=== PATIENT | female | born 1995 | race Caucasian/White ===

== ENCOUNTER 2017-07-28 19:49 | Emergency (ER) | payer OTHER ==
[~2017-07-28] VITALS: Ht 165.1 cm; Wt 59.0 kg
[2017-07-28] MEDS ORDERED: KETOROLAC 30 MG/ML VIAL IVP STA (23:36)
[2017-07-29 00:19] LABS: BASOPHILS % (AUTO) 1 % (0-10); EOSINOPHILS # (AUTO) 0.2 10^3/uL (0.0-0.3); EOSINOPHILS % (AUTO) 2 % (0-10); HEMATOCRIT 39 % (35-52); HEMOGLOBIN 13.3 G/DL (11.5-16.0); LYMPHOCYTES # (AUTO) 3.8 X 10^3 (1.0-4.0); LYMPHOCYTES % (AUTO) 48 % (12-44); MEAN CORPUSCULAR HEMOGLOBIN 32 PG (25-34); MEAN CORPUSCULAR HGB CONC 34 G/DL (32-36); MEAN CORPUSCULAR VOLUME 93 FL (80-99); MEAN PLATELET VOLUME 10.5 FL (7.4-10.4); MONOCYTES # (AUTO) 0.6 X 10^3 (0.0-1.0); MONOCYTES % (AUTO) 8 % (0-12); NEUTROPHILS # (AUTO) 3.2 X 10^3 (1.8-7.8); NEUTROPHILS % (AUTO) 41 % (42-75); PLATELET COUNT 258 10^3/uL (130-400); RED BLOOD COUNT 4.19 10^6/uL (4.35-5.85); WHITE BLOOD COUNT 7.8 10^3/uL (4.3-11.0)
[2017-07-29 00:30] LABS: BILIRUBIN,URINE NEGATIVE (NEGATIVE); CLARITY,URINE SLIGHTLY CLOUDY; GLUCOSE, URINE (UA) NEGATIVE (NEGATIVE); KETONES,URINE NEGATIVE (NEGATIVE); LEUKOCYTE ESTERASE ,URINE 1+ (NEGATIVE); NITRITE,URINE NEGATIVE (NEGATIVE); PH,URINE 6 (5-9); PROTEIN,URINE 1+ (NEGATIVE); UROBILINOGEN,URINE NORMAL (NORMAL)
[2017-07-29 00:43] LABS: COLOR,URINE YELLOW
[2017-07-29 00:44] LABS: ALANINE AMINOTRANSFERASE 31 U/L (0-55); ALBUMIN 3.9 GM/DL (3.2-4.5); ALKALINE PHOSPHATASE 50 U/L (40-136); BILIRUBIN,TOTAL 0.3 MG/DL (0.1-1.0); BUN/CREATININE RATIO 15; CALCIUM 9.1 MG/DL (8.5-10.1); CARBON DIOXIDE 23 MMOL/L (21-32); CHLORIDE 105 MMOL/L (98-107); CREATININE SERUM 0.74 MG/DL (0.60-1.30); GFR ESTIMATED > 60; GLUCOSE 94 MG/DL (70-105); POTASSIUM 3.2 MMOL/L (3.6-5.0); SODIUM 139 MMOL/L (135-145); TOTAL PROTEIN 6.7 GM/DL (6.4-8.2)
[2017-07-29 00:45] LABS: BACTERIA,URINE FEW /HPF; WBC,URINE RARE /HPF
[2017-07-29] MEDS ORDERED: IOHEXOL 350 MG/ML 100 ML (OMNIPAQUE 350) VIAL IV ONE (00:45)
[2017-07-29] MEDS ORDERED: NS 100 ML (IVPB) BAG IV ONE (00:45)
[2017-07-29] MEDS ORDERED: ORPH100T PO (02:27)
[2017-07-29] MEDS ORDERED: TRAM-42 PO (02:27)
[2017-07-29] MEDS ORDERED: NAPR500T4 PO (02:27)
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
[2017-07-29] MEDS ORDERED: RX-HYDROCODONE/APAP 5/325 MG #4 TAB PK PO PRN (02:30)
[2017-07-29] MEDS ORDERED: ORPHENADRINE 60 MG/2 ML (NORFLEX) AMP IV ONE (02:30)
[2017-07-29] MEDS ORDERED: HYDROcodone/APAP 5 MG/325 MG (LORTAB) TAB PO ONE (02:30)
[2017-07-29 02:55] VITALS: BP 124/83
--- NOTE | 2017-07-29 06:50 | Diagnostic Imaging Report ---
PROCEDURE: CT abdomen and pelvis with contrast. TECHNIQUE: Multiple contiguous axial images were obtained through the abdomen and pelvis after administration of intravenous contrast. INDICATION: Right groin pain. COMPARISON: None. FINDINGS: Included portions of the lung bases are clear. CT ABDOMEN: Large amount of air and stool is noted scattered throughout the colon. Normal appendix cannot be adequately identified, but there is no pericecal inflammation. Small bowel loops are nondistended. The kidneys, adrenal glands, spleen, pancreas, and liver have a normal CT appearance. There is no loculated fluid collection, free fluid, or free air within the abdomen. No abnormal mesenteric or tracheal adenopathy is seen. Bony structures show no acute abnormality. CT PELVIS: Small amount of free fluid is noted within the pelvis. There is no loculated air-fluid collection or free air. Urinary bladder is grossly unremarkable. No abnormal lymph nodes are seen. Bony structures show no acute abnormalities. IMPRESSION: 1. Small amount of free fluid within the pelvis; likely physiologic. 2. Large amount of colonic air and stool. Please correlate for constipation. Dictated by: Dictated on workstation # [id number]
== END 2017-07-29 02:57 | disposition home or self-care (01) ==
LOC: ER 19:51
DX: S39.011A Strain of muscle, fascia and tendon of abdomen, initial encounter (principal); X50.1XXA Overexertion from prolonged static or awkward postures, initial encounter; Y93.02 Activity, running
CPT/HCPCS: 36415; 74177; 80053; 81000; 84703; 85025; 87088; 96374; 96375

== ENCOUNTER 2019-08-14 15:47 | Emergency (ER) | payer OTHER ==
[~2019-08-14] VITALS: Ht 165 cm; Wt 58.9 kg
[~2019-08-14 15:47] MED LIST: NAPR-915 PO; ORPH100T PO; TRAM-42 PO
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
--- NOTE | 2019-08-14 16:47 | NUR ---
C-COLLAR REMOVED BY DR JOHNSON
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
--- NOTE | 2019-08-14 17:02 | Diagnostic Imaging Report ---
INDICATION: Left elbow injury FINDINGS: Three views of the left elbow show no fracture, dislocation or pathologic effusion. IMPRESSION: Negative left elbow. Dictated by: Dictated on workstation # [id number]
[2019-08-14] MEDS ORDERED: CYCL10TA9 PO (17:20)
[2019-08-14 17:24] VITALS: BP 146/107
== END 2019-08-14 17:31 | disposition home or self-care (01) ==
LOC: EDUNIT# 15:47 → ER 15:49
DX: S50.02XA Contusion of left elbow, initial encounter (principal); S13.4XXA Sprain of ligaments of cervical spine, initial encounter; S80.211A Abrasion, right knee, initial encounter; R40.2142 Coma scale, eyes open, spontaneous, at arrival to emergency department; R40.2252 Coma scale, best verbal response, oriented, at arrival to emergency department; R40.2362 Coma scale, best motor response, obeys commands, at arrival to emergency department; V03.10XA Pedestrian on foot injured in collision with car, pick-up truck or van in traffic accident, initial encounter
CPT/HCPCS: 70450; 72125; 73080; 73562